=== PATIENT | male | born 1985 | race Caucasian/White ===

== ENCOUNTER 2017-02-02 01:08 | Emergency (ER) | payer BC, OTHER ==
[2017-02-02 01:28] VITALS: BP 122/76; PULSE 80; TEMP 98.3; BMI 27.4
--- NOTE | 2017-02-02 01:47 | PDOC ---
[id number] PAIN/YPD Time Seen by Provider: 02/02/17 01:31 - History of Present Illness Initial Comments: 02/02/17 01:47 CHIEF COMPLAINT: abscess to R side of face HISTORY OF PRESENT ILLNESS: 31 yo M with no PMH presents to ED with abscess to right side of face x 2 days. Patient states the abscess began hurting today and he feels like there is swelling in his ear. No recent travel or sick contacts. PAST MEDICAL HISTORY: Denies past medical history FAMILY HISTORY: Denies SOCIAL HISTORY: Denies tobacco, alcohol, illicit drug use. SURGICAL HISTORY: Denies ALLERGIES: No known drug allergies REVIEW OF SYSTEMS General/Constitutional: Denies fever or chills. Denies weakness, weight change. HEENT: Pain and abscess to R ear. Denies change in vision. Denies ear pain or discharge. Denies sore throat. Cardiovascular: Denies chest pain or shortness of breath. Respiratory: Denies cough, wheezing, or hemoptysis. Gastrointestinal: Denies nausea, vomiting, diarrhea or constipation. Denies rectal bleeding. Genitourinary: Denies dysuria, frequency, or change in urination. Musculoskeletal: Denies joint or muscle swelling or pain. Denies neck or back pain. Skin and breasts: Denies rash or easy bruising. PHYSICAL EXAM General Appearance: Well-appearing, appropriately dressed. No apparent distress , no intoxication. HEENT: 1cm x 1cm developing abscess anterior to R tragus. EOMI, PERRLA, normal ENT inspection, normal voice, TMs normal, pharynx normal. No conjunctival pallor. No photophobia, scleral icterus. Respiratory/Chest: Lungs CTAB. Cardiovascular: RRR. S1, S2. Integumentary: See HEENT. Other khan appropriate color, dry, warm. 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 Fully oriented, alert. Appropriate mood/affect. Motor strength 5/5. No appreciable EOM palsy, facial droop or sensory deficit. 02/02/17 02:16 Past History - Past Medical History Allergies/Adverse Reactions: Allergies Allergy/AdvReac Type Severity Reaction Status Date / Time No Known Allergies Allergy Verified 02/02/17 01:24 Home Medications: Ambulatory Orders Ibuprofen 600 mg PO TID PRN #21 tablet 03/23/17 Sulfamethoxazole/Trimethoprim [Bactrim Ds -] 1 tab PO BID #14 tablet 02/02/17 - Immunization History Immunization Up to Date: Yes - Psycho/Social/Smoking Cessation Hx Suicidal Ideation: No Smoking History: Never smoked Have you smoked in the past 12 months: No Information on smoking cessation initiated: No Hx Alcohol Use: No Drug/Substance Use Hx: No Substance Use Type: None *Physical Exam - Vital Signs Last Vital Signs Temp Pulse Resp BP Pulse Ox 98.3 F 80 20 122/76 99 02/02/17 01:24 02/02/17 01:24 02/02/17 01:24 02/02/17 01:24 02/02/17 01:24 Medical Decision Making - Medical Decision Making 02/02/17 01:48 31 yo M with no PMH presents to ED with abscess anterior to R tragus. Newly developing abscess is not ready to be drained at this time. Area circumscribed with marker; advised patient to return if abscess spreads past marked area. -Bactrim po BID, rx sent to pharm Advisd patient to take medication as prescribed and of signs and symptoms for return to ER. Patient verbalized understanding and agrees to plan. *DC/Admit/Observation/Transfer Diagnosis at time of Disposition: Abscess - Discharge Dispostion Disposition: HOME Condition at time of disposition: Stable Admit: No - Prescriptions Prescriptions: Sulfamethoxazole/Trimethoprim [Bactrim Ds -] 1 tab PO BID #14 tablet Ibuprofen 600 mg PO TID PRN #21 tablet PRN Reason: Pain - Patient Instructions Printed Discharge Instructions: DI for Skin Abscess Additional Instructions: As discussed, please take medications as prescribed. Please use warm compresses for 10-15 minutes at least 3-4 times a day. Please return to the ER if the abscess spread beyond the marked area, or if you develop fever, nausea, vomiting, or diarrhea, or any new or worsening symptoms.
== END 2017-02-02 02:07 | disposition home or self-care (01) ==
LOC: JER 01:08
DX: H60.01 Abscess of right external ear (principal)
CPT/HCPCS: 99281-25

== ENCOUNTER 2018-10-05 16:10 | Inpatient (IN) | payer BC, OTHER ==
--- NOTE | 2018-10-05 16:22 | PDOC ---
Rapid Medical Evaluation Medical Evaluation: Allergies Allergy/AdvReac Type Severity Reaction Status Date / Time No Known Allergies Allergy Verified 02/02/17 01:24 I have performed a brief in-person evaluation of this patient. The patient presents with a chief complaint of: 33 y/o M presents with swelling along R lower back x 3 days with fever yesterday. Has noted purulent drainage from site PE with warm, erythema, swelling and induration along R lower back Likely with abscess which will need I&D; consider wound culture The patient will proceed to the ED for further evaluation. 10/05/18 16:19
[2018-10-05 16:23] VITALS: BMI 28.3
[2018-10-05] MEDS ORDERED: IBUPROFEN 400 MG TABLET (FP) PO ONE (16:23)
[2018-10-05] MEDS ORDERED: SODIUM CHLORIDE IV ONE (17:38)
--- NOTE | 2018-10-05 17:42 | PDOC ---
Attending Attestation - Resident Resident Name: Erica Winters - ED Attending Attestation I have performed the following: I have examined & evaluated the patient, The case was reviewed & discussed with the resident, I agree w/resident's findings & plan, Exceptions are as noted - Medical Decision Making 10/05/18 17:42 I, Dr. Cindi Faust, DO, attest that this document has been prepared under my direction and personally reviewed by me in its entirety. I further attest, that it accurately reflects all work, treatment, procedures and medical decision -making performed by me. 10/05/18 18:28 a/p: 33yo male with R flank abscess -site where he carries his firearm was rubbing his back -bedside ultrasound does not show a collected abscess but instead shows cobblestoning and small areas of fluid collection, but not enough to I&D -will send cultures -will apply warm compresses -will give iv abx given fever and SIRS criteria -will admit for iv abx and poss I&D tomorrow -will start ivf hydration -will admit to [facility] 10/05/18 18:38 resident discussed the case with [facility] who accepts pt to service <Cindi Faust - Last Filed: 10/05/18 18:38> - HPI HPI: 10/05/18 20:42 The patient is a 33 year old male, with no significant past medical history, who presents to the emergency department with, 4 days of a abscess. As per patient, his abscess has been ongoing for 4 days with associated purulent discharge, erythema, and tenderness. Patient endorses a fever today, Tmax 101 degrees Fahrenheit, prompting his visit to the ER today. He denies any recent headache or dizziness. He denies any recent nausea, vomit, diarrhea or constipation. He denies any recent chest pain or shortness of breath. He denies any recent dysuria, frequency, urgency or hematuria. Allergies: NKDA Past surgical history: Orthopedic knee surgery. Social History: Nonsmoker. Denies EtOH use and recreational drug use. Primary Care Physician: Dr. Burnham - Physicial Exam PE: 10/05/18 20:43 Constitutional: Awake, alert, oriented. No acute distress. Head: Normocephalic. Atraumatic Eyes: PERRL. EOMI. Conjunctivae are not pale. ENT: Mucous membranes are moist and intact. Posterior pharynx without exudates or erythema. Uvula midline. Neck: Supple. Full ROM. No lymphadenopathy. +Cardiovascular: Tachycardic. S1, S2 regular. Distal pulses are 2+ and symmetric. Pulmonary/Chest: No evidence of respiratory distress. Clear to auscultation bilaterally No wheezing, rales or rhonchi. Abdominal: Soft and non-distended. There is no tenderness. No rebound, guarding or rigidity. No organomegaly. No palpable masses. Good bowel sounds. +Back: Right lower back 8cm abscess with surrounding cellulitis radiating to the abdomen associated warmth, tenderness. Musculoskeletal: No edema. No cyanosis. No clubbing. Full range of motion in all extremities. No calf tenderness. Radial/pedal pulses are intact and 2+ bilaterally Skin: Skin is warm and dry. No petechiae. No purpura. Neurological: Alert and oriented to person, place, and time. Cranial nerves II -XII are grossly intact. Normal speech. Strength is grossly symmetric. No sensory deficits. Psychiatric: Good eye contact. Normal interaction, affect and behavior. <Halle Piña - Last Filed: 10/05/18 20:44> Attestations - Attestations 10/05/18 20:44 Documentation prepared by Halle Piña, acting as hospital medical biller for Cindi Faust DO. <Halle Piña - Last Filed: 10/05/18 20:44>
--- NOTE | 2018-10-05 17:50 | PDOC ---
History of Present Illness - General Chief Complaint: Wound Stated Complaint: LUMP Time Seen by Provider: 10/05/18 17:12 History Source: Patient Exam Limitations: No Limitations - History of Present Illness Initial Comments: Pt is a 33 yo M, with no signifcant PMH, who is presenting with abscess with purulent drainage from his R flank for 4 days. Pt states it first "popped by itself" in the shower 4 days ago, when he reached around to see where the pain in his R side was coming from, which drained white exudate with blood mixed in. The pt states his mother also was able to release purulent drainage 2 days ago, and prepped the area with alcohol. The pt admits to subjective fevers and chills last night, and took 400 mg ibuprofen in the evening. The pt states he wears his gun in the L side of his pants, and thinks it may have rubbed against his back. Pt denies any headache, vision changes, chest pain, palpitations, SOB , nausea/vomiting, abdominal pain, urinary symptoms, diarrhea/constipation, or joint/leg swelling. Pt is up-to-date on tetanus vaccination (3 years ago). Pt denies any cigarette, alcohol, or drug use. Pt denies any recent travel or sick contacts. 10/05/18 18:42 Past History - Travel Traveled outside of the country in the last 30 days: No Close contact w/someone who was outside of country & ill: No - Past Medical History Allergies/Adverse Reactions: Allergies Allergy/AdvReac Type Severity Reaction Status Date / Time No Known Allergies Allergy Verified 10/05/18 16:19 Home Medications: Ambulatory Orders NK [No Known Home Medication] 10/05/18 - Immunization History Immunization Up to Date: Yes - Suicide/Smoking/Psychosocial Hx Smoking History: Never smoked Have you smoked in the past 12 months: No Hx Alcohol Use: No Drug/Substance Use Hx: No Substance Use Type: None Review of Systems - Review of Systems Able to Perform ROS?: Yes Is the patient limited Macedonian proficient: No Constitutional: Yes: Chills, Fever (subjective), Weight Stable. No: Diaphoresis , Loss of Appetite, Night Sweats, Weakness HEENTM: No: Blurred Vision, Double Vision, Throat Pain, Throat Swelling, Difficulty Swallowing Respiratory: No: Cough, Orthopnea, Shortness of Breath Cardiac (ROS): No: Chest Pain, Edema, Irregular Heart Rate, Lightheadedness, Palpitations, Syncope, Chest Tightness ABD/GI: No: Abdominal Distended, Constipated, Diarrhea, Nausea, Poor Appetite, Poor Fluid Intake, Vomiting, Abdominal cramping : No: Burning, Dysuria, Discharge, Frequency, Hematuria, Pain, Urgency Musculoskeletal: Yes: Back Pain (lower R back pain, superficial and only when touching his abscess site). No: Joint Pain, Joint Swelling, Muscle Pain, Muscle Weakness, Neck Pain, Joint Stiffness Integumentary: Yes: Change in Color, Erythema, Lesions (abscess lower back with surrounding warmth and redness). No: Rash Neurological: No: Headache, Seizure, Weakness, Unsteady Gait, Ataxia, Dizziness Psychiatric: No: Sleep Pattern Change, Change in Appetite Endocrine: No: Increased Urine, Change in Weight Hematologic/Lymphatic: No: Anemia, Blood Clots, Easy Bleeding, Easy Bruising All Other Systems: Reviewed and Negative *Physical Exam - Vital Signs Last Vital Signs Temp Pulse Resp BP Pulse Ox 100.1 F H 111 H 16 114/71 99 10/05/18 16:21 10/05/18 16:21 10/05/18 16:21 10/05/18 16:21 10/05/18 16:21 - Physical Exam General Appearance: Yes: Nourished, Appropriately Dressed. No: Apparent Distress (lying comfortably, low grade fever, tachycardic. NAD) HEENT: positive: EOMI, DESIRAE, Normal ENT Inspection, Normal Voice, Symmetrical, Pharynx Normal, Hearing Grossly Normal. negative: Scleral Icterus (R), Scleral Icterus (L), Pharyngeal Erythema, Tonsillar Exudate, Tonsillar Erythema, Rhinorrhea Neck: positive: Trachea midline, Normal Thyroid, Supple. negative: Tender, Rigid, Lymphadenopathy (R), Lymphadenopathy (L), Rigidity Respiratory/Chest: positive: Lungs Clear, Normal Breath Sounds. negative: Chest Tender, Respiratory Distress, Accessory Muscle Use, Crackles, Wheezing Cardiovascular: positive: Regular Rhythm, S1, S2, Tachycardia. negative: Regular Rate, Edema, JVD, Murmur Vascular Pulses: Carotid (R): 4+, Carotid (L): 4+ Gastrointestinal/Abdominal: positive: Normal Bowel Sounds, Flat, Soft. negative : Tender, Organomegaly, Pulsatile Mass, Distended, Guarding, Rebound Rectal Exam: positive: deferred Lymphatic: negative: Adenopathy, Tenderness Musculoskeletal: positive: Normal Inspection. negative: CVA Tenderness, Decreased Range of Motion Extremity: positive: Normal Capillary Refill, Normal Inspection, Normal Range of Motion, Pelvis Stable. negative: Tender, Pedal Edema, Swelling Integumentary: positive: Dry, Warm, Erythema, Other (large 8-9 cm firm abscess with puncture site, with surrounding warmth, and erythema extending around R flank and R groin. Area marked with pen. No drainage at this time.). negative: Normal Color Neurologic: positive: home health billing specialist II-XII NML intact, Fully Oriented, Alert, Normal Mood/ Affect, Normal Response, Motor Strength 03/17 ED Treatment Course - LABORATORY CBC & Chemistry Diagram: 10/05/18 17:55 10/05/18 17:55 - Medications Given in the ED: ED Medications Discontinued Medications Generic Name Dose Route Start Last Admin Trade Name Freq PRN Reason Stop Dose Admin Ibuprofen 800 mg 10/05/18 16:23 10/05/18 16:24 Motrin - PO 10/05/18 16:24 800 mg ONCE ONE Administration Medical Decision Making - Medical Decision Making Pt was seen at bedside, also will be seen by attending Dr. Faust. Pt presenting with abscess with purulent drainage from his R flank for 4 days. Pt states it first "popped by itself" in the shower 4 days ago, when he reached around to see where the pain in his R side was coming from, which drained white exudate with blood mixed in. The pt states his mother also was able to release purulent drainage 2 days ago, and prepped the area with alcohol. The pt admits to subjective fevers and chills last night, and took 400 mg ibuprofen in the evening. The pt states he wears his gun in the L side of his pants, and thinks it may have rubbed against his back. Pt denies any headache, vision changes, chest pain, palpitations, SOB, nausea/vomiting, abdominal pain, urinary symptoms , diarrhea/constipation, or joint/leg swelling. T 100.1, HR 111, RR 16, BP 114/71, saturating 99% on RA. PE showed puncture area on R lower back, with ~8-9 cm firm Considering local cellulitis with abscess vs sepsis and involvement of deeper tissue space. Ordered work-up including CBC, CMP, lactic acid, blood cultures, UA and urine culture. Provided 1 g ofirmev, 30 cc/kg IV NS and 15 mg/kg vancomycin for improvement of pain and antibiotic coverage. Will continue to reassess pt and monitor for symptomatic improvement. Bedside US showed very small fluid collection that was dispersed and not collected enough to drain yet. Will apply warm compresses to loosen the collection overnight. Provided pt with warm compresses. 10/05/18 18:02 Microblog paged to hospitalist for admission. CBC WNL. Pending CBC and pt to provide urine sample. 10/05/18 18:32 Spoke with hospitalist team, who has accepted the pt and will come down to see him. Area of cellulitis marked with pen for admitting team. 10/05/18 18:37 CBC WNL. Pt received 1L NS fluid bolus so far. Lactic acid 0.9 Pt resting comfortably, vitals stable. Pending bed on inpatient floor. 10/05/18 19:47 *DC/Admit/Observation/Transfer Diagnosis at time of Disposition: Abscess, Cellulitis of back [any part except buttock] - Discharge Dispostion Condition at time of disposition: Stable Decision to Admit order: Yes - Referrals - Patient Instructions - Post Discharge Activity
[2018-10-05] MEDS ORDERED: ACETAMINOPHEN 1000 MG/100 ML VIAL (NON FORMULARY) IVPB ONE (18:21)
[2018-10-05] MEDS ORDERED: VANCOMYCIN 1,250 MG in DEXTROSE 5%-WATER - 250 ML IVPB ONE (18:21)
[2018-10-05] MEDS ORDERED: ACETAMINOPHEN INJECTION 100 ML IVPB ONE (18:22)
[2018-10-05 18:27] LABS: ALBUMIN 3.6 g/dl (3.4-5.0); ALK PHOS 85 U/L (45-117); ANION GAP 4 MMOL/L (8-16); BILIRUBIN,TOTAL 0.4 mg/dL (0.2-1); BLOOD UREA NITROGEN 12 mg/dL (7-18); CALCIUM 8.6 mg/dL (8.5-10.1); CHLORIDE 105 mmol/L (98-107); CO2 30 mmol/L (21-32); CREATININE 0.9 mg/dL (0.55-1.3); GLUCOSE,RANDOM 101 mg/dL (74-106); POTASSIUM 4.2 mmol/L (3.5-5.1); SGOT/AST 19 U/L (15-37); SGPT/ALT 32 U/L (13-61); SODIUM 138 mmol/L (136-145); TOT PROT 7.3 g/dl (6.4-8.2)
[2018-10-05 18:44] LABS: BASO % 0.2 % (0-2.0); EOS % 0.7 % (0-4.5); HEMATOCRIT 37.4 % (35.4-49); HEMOGLOBIN 13.6 GM/dL (11.7-16.9); MCH 32.9 pg (25.7-33.7); MCHC 36.4 g/dl (32.0-35.9); MEAN CELL VOLUME 90.4 fl (80-96); MEAN PLT VOLUME 9.5 fl (7.5-11.1); MONO % 6.2 % (3.8-10.2); NEUT % 73.9 % (42.8-82.8); PLATELET COUNT 174 K/MM3 (134-434); RBC 4.14 M/mm3 (4.00-5.60); RDW 12.2 % (11.9-15.9); WHITE BLOOD COUNT 8.1 K/mm3 (4.0-10.0)
--- NOTE | 2018-10-05 21:04 | HP ---
CHIEF COMPLAINT: Purulent Drainage to R- Flank, Fever, Chills PCP: Dr. Randell Burnham HISTORY OF PRESENT ILLNESS: This is a 33 y/o young man with no significant past medical history. Who presents to the ED for an abscess with purulent drainage to the right flank, fever and chills x 4 days. The patient reports while taking a shower he felt a Pop and noted [id number] discharge from the abscess. Patient reports haivng his mother excise further and using alcohol prep pads to the skin. Patient reports that the area became more indurated, erythematous with streaking to his abdomen. Patient reports having a subjective fever 101.0 with chills, taking Ibuprofen 400mg. 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 Patient denies cough, MAGANA, dizziness , SOB, CP, N/V/D, dysuria. 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 Family History: Aunt- Ovarian Ca Cousins x2- Leukemia Allergies No Known Allergies Allergy (Verified 10/05/18 16:19) HOME MEDICATIONS: Home Medications Medication Instructions Recorded NK [No Known Home Medication] 10/05/18 REVIEW OF SYSTEMS CONSTITUTIONAL: fever, chills Absent: diaphoresis, generalized weakness, malaise, loss of appetite, weight change HEENT: Absent: rhinorrhea, nasal congestion, throat pain, throat swelling, difficulty swallowing, mouth swelling, ear pain, eye pain, visual changes CARDIOVASCULAR: Absent: chest pain, syncope, palpitations, irregular heart rate, lightheadedness , peripheral edema RESPIRATORY: Absent: cough, shortness of breath, dyspnea with exertion, orthopnea, wheezing, stridor, hemoptysis GASTROINTESTINAL: Absent: abdominal pain, abdominal distension, nausea, vomiting, diarrhea, constipation, melena, hematochezia GENITOURINARY: Absent: dysuria, frequency, urgency, hesitancy, hematuria, flank pain, genital pain MUSCULOSKELETAL: Absent: myalgia, arthralgia, joint swelling, back pain, neck pain SKIN: abscess to R-flank/torso with pus Absent: rash, itching, pallor HEMATOLOGIC/IMMUNOLOGIC: Absent: easy bleeding, easy bruising, lymphadenopathy, frequent infections ENDOCRINE: Absent: unexplained weight gain, unexplained weight loss, heat intolerance, cold intolerance NEUROLOGIC: Absent: headache, focal weakness or paresthesias, dizziness, unsteady gait, seizure, mental status changes, bladder or bowel incontinence PSYCHIATRIC: Absent: anxiety, depression, suicidal or homicidal ideation, hallucinations. PHYSICAL EXAMINATION Vital Signs - 24 hr 10/05/18 10/05/18 16:21 19:24 Temperature 100.1 F H 98 F Pulse Rate 111 H Pulse Rate [ 86 Apical] Respiratory 16 18 Rate Blood Pressure 114/71 Blood Pressure 127/69 [Left Arm] O2 Sat by Pulse 99 100 Oximetry (%) GENERAL: Awake, alert, and fully oriented, in no acute distress. HEAD: Normal with no signs of trauma. EYES: Pupils equal, round and reactive to light, extraocular movements intact, sclera anicteric, conjunctiva clear. No lid lag. EARS, NOSE, THROAT: Ears normal, nares patent, oropharynx clear without exudates. Moist mucous membranes. NECK: Normal range of motion, supple without lymphadenopathy, JVD, or masses. LUNGS: Breath sounds equal, clear to auscultation bilaterally. No wheezes, and no crackles. No accessory muscle use. HEART: Regular rate and rhythm, normal S1 and S2 without murmur, rub or gallop. ABDOMEN: Soft, nontender, not distended, normoactive bowel sounds, no guarding, no rebound, no masses. No hepatomegaly or splenomegaly. MUSCULOSKELETAL: Normal range of motion at all joints. No bony deformities or tenderness. No CVA tenderness. UPPER EXTREMITIES: 2+ pulses, warm, well-perfused. No cyanosis. No clubbing. No peripheral edema. LOWER EXTREMITIES: 2+ pulses, warm, well-perfused. No calf tenderness. No peripheral edema. NEUROLOGICAL: Cranial nerves II-XII intact. Normal speech. Normal gait. PSYCHIATRIC: Cooperative. Good eye contact. Appropriate mood and affect. SKIN: large 8-9 cm indurated abscess with puncture site non fluctuant, non purulent with surrounding warmth, and erythema extending around R flank and R groin. Warm, dry, normal turgor, no rashes. normal capillary refill. Laboratory Results - last 24 hr 11/10/05/18 10/05/18 17:55 17:55 17:55 WBC 8.1 RBC 4.14 Hgb 13.6 Hct 37.4 MCV 90.4 MCH 32.9 MCHC 36.4 H RDW 12.2 Plt Count 174 MPV 9.5 Absolute Neuts (auto) 6.0 Neutrophils % 73.9 Lymphocytes % 19.0 Monocytes % 6.2 Eosinophils % 0.7 Basophils % 0.2 Nucleated RBC % 0 Sodium 138 Potassium 4.2 Chloride 105 Carbon Dioxide 30 Anion Gap 4 L BUN 12 Creatinine 0.9 Creat Clearance w eGFR > 60 Random Glucose 101 Lactic Acid 0.9 Calcium 8.6 Total Bilirubin 0.4 AST 19 ALT 32 Alkaline Phosphatase 85 Total Protein 7.3 Albumin 3.6 ASSESSMENT/PLAN: 33 y/o man with no PMHx. Admitted for Cellulitis to R- Flank/Torso, Abscess for further evaluation of their emergent condition. Plan: FEN PO Fluids as tolerated Replete lytes Regular Diet DVT ppx OOB SCDs Dispo: Requires Inpatient Care Problem List - Problem (1) Cellulitis of back [any part except buttock] Assessment/Plan: Blood Cultures pending No leukocytosis, no neutrophilia T Max 100.1, P 111 Vancomycin given in ED, will continue Appreciate ID consult Monitor CBC, BMP Monitor vitals Warm soaks Tylenol prn Code(s): L03.312 - CELLULITIS OF BACK [ANY PART EXCEPT BUTTOCK] (2) Abscess Assessment/Plan: See above Code(s): L02.91 - CUTANEOUS ABSCESS, UNSPECIFIED Visit type - Emergency Visit Emergency Visit: Yes ED Registration Date: 10/05/18 Care time: The patient presented to the Emergency Department on the above date and was hospitalized for further evaluation of their emergent condition. - New Patient This patient is new to me today: Yes Date on this admission: 10/05/18 - Critical Care Critical Care patient: No
[2018-10-05] MEDS ORDERED: ACETAMINOPHEN 325 MG TABLET (FP) PO PRN (21:05)
[2018-10-06 00:20] LABS: URINE APPEARANCE CLEAR; URINE BILIRUBIN NEGATIVE (<2.0 mg/dL); URINE COLOR STRAW; URINE GLUCOSE (UA) NEGATIVE (NEGATIVE); URINE KETONE NEGATIVE (NEGATIVE); URINE LEUK ESTERASE NEGATIVE (NEGATIVE); URINE NITRITE NEGATIVE (NEGATIVE); URINE PROTEIN NEGATIVE (NEGATIVE); URINE UROBILINOGEN NEGATIVE mg/dL (0.2-1.0)
[2018-10-06 08:19] LABS: BASO % 0.3 % (0-2.0); HEMATOCRIT 38.9 % (35.4-49); HEMOGLOBIN 12.8 GM/dL (11.7-16.9); LYMPH % 26.3 % (8-40); MCH 30.5 pg (25.7-33.7); MEAN CELL VOLUME 92.5 fl (80-96); MEAN PLT VOLUME 9.4 fl (7.5-11.1); MONO % 8.3 % (3.8-10.2); NEUT % 63.1 % (42.8-82.8); PLATELET COUNT 147 K/MM3 (134-434); RDW 11.9 % (11.9-15.9); WHITE BLOOD COUNT 5.5 K/mm3 (4.0-10.0)
[2018-10-06 08:52] LABS: ANION GAP 7 MMOL/L (8-16); BLOOD UREA NITROGEN 13 mg/dL (7-18); CALCIUM 8.3 mg/dL (8.5-10.1); CHLORIDE 106 mmol/L (98-107); CO2 27 mmol/L (21-32); CREATININE 0.8 mg/dL (0.55-1.3); GLUCOSE,RANDOM 83 mg/dL (74-106); POTASSIUM 4.2 mmol/L (3.5-5.1); SODIUM 140 mmol/L (136-145)
[2018-10-06] MEDS ORDERED: VANCOMYCIN 1,250 MG in DEXTROSE 5%-WATER - 250 ML IVPB SCH (09:00)
--- NOTE | 2018-10-06 11:29 | PN ---
Progress Note (short form) - Note Progress Note: ID Consult dictated Soft tissue abscess R flank Fever R/O sepsis secondary to skin source BC obtained Surgical eval for I&D Empiric vancomycin/ unasyn
[2018-10-06] MEDS: AMPICILLIN NA/SULBACTAM NA 1.5 GM in SODIUM CHLORIDE 100 ML IVPB SCH ×3 (11:45→21:13)
[2018-10-06] MEDS ORDERED: AMPICILLIN NA/SULBACTAM NA 1.5 GM VIAL ONE ×2 (11:50→21:00)
[2018-10-06] MEDS ORDERED: SODIUM CHLORIDE 100 ML IVPB ONE ×2 (11:50→21:00)
--- NOTE | 2018-10-06 11:59 | CONS ---
DATE OF CONSULTATION: DATE OF DICTATION: 10/06/2018 REASON FOR CONSULTATION: Patient is a 33-year-old healthy male who was evaluated for a soft tissue abscess of the right flank. 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 He developed right flank pain and swelling over the past 3 to 4 days. He noted developing a soft tissue abscess, which he himself popped and expressed purulent fluid. The swelling recurred and he developed a fever to 101 on the day prior to admission. He presented to the emergency room where he was admitted. On exam, he was found to have a soft tissue abscess involving the right flank area. He was also noted to have a low-grade fever. Patient denies prior history of serious soft tissue infection requiring hospitalization, denies history of MRSA. PAST MEDICAL HISTORY: Negative. PAST SURGICAL HISTORY: He is status post left knee arthroscopy. HOME MEDICATIONS: None. ALLERGIES: No known allergies. SYSTEMS REVIEW: Neurologic: No loss of consciousness, seizure activity, or focal weakness. Cardiac: Negative chest pain or palpitations. Respiratory: Negative cough or sputum production. Gastrointestinal: Negative vomiting or diarrhea. Genitourinary: Negative for urinary tract infection. 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 LABORATORY DATA: White count 5.5, hematocrit 38.9, platelet count 147. BUN 13, creatinine 0.8. Blood and urine cultures are pending. Urine leukocyte esterase negative. PHYSICAL EXAMINATION: General: On physical examination he is awake and alert. He is not acutely toxic-appearing. Vitals: Temperature 97.5, T max 100.1, blood pressure 115/73, pulse 69 regular, respirations 18 per minute. HEENT: Sclera anicteric. Heart: Sounds S1, S2. Lungs: Clear. Abdomen: Soft and nontender. Examination of the right flank there is a large subcutaneous swelling approximately 5 x 7 cm elliptical in shape. It is indurated. There is a central pustule. It is tender to touch and erythematous. There is no expressible pus. Extremities: Negative for edema. IMPRESSION: 1. Soft tissue abscess, right flank. 2. Fever, rule out sepsis, secondary to skin source. Blood cultures have been obtained. Surgical evaluation for incision and drainage. Empiric antibiotic coverage with vancomycin and Unasyn. Warm compresses, analgesics. Will follow. Thank you for the kind referral. JADE SHAW M.D. TRISH/[id number]
[2018-10-06] MEDS: VANCOMYCIN 1,250 MG in DEXTROSE 5%-WATER - 250 ML IVPB SCH (13:30)
[2018-10-06] MEDS ORDERED: oxyCODONE HCL 5 MG TABLET PO ONE (13:43)
[2018-10-06] MEDS ORDERED: oxyCODONE HCL 5 MG TABLET PO PRN (14:34)
--- NOTE | 2018-10-06 14:35 | PN ---
Physical Exam: SUBJECTIVE: Patient seen and examined. Seen by ID, started on Unasyn and Vanco. Started having increased pain about an hour after IV abx started. Surgeon consult to have I&D tomorrow. OBJECTIVE: Vital Signs Period Temp Pulse Resp BP Sys/Matthews Pulse Ox Last 24 Hr 97.5 F-100.1 F 69-111 16-18 106-127/46-73 98-100 GENERAL: Awake, alert, and fully oriented, in no acute distress. HEAD: Normal with no signs of trauma. EYES: Pupils equal, round and reactive to light, extraocular movements intact, sclera anicteric, conjunctiva clear. No lid lag. EARS, NOSE, THROAT: Nares patent, oropharynx clear without exudates. Moist mucous membranes. NECK: Normal range of motion, supple without lymphadenopathy, JVD, or masses. LUNGS: Breath sounds equal, clear to auscultation bilaterally. No wheezes, and no crackles. No accessory muscle use. HEART: Regular rate and rhythm, normal S1 and S2 without murmur, rub or gallop. ABDOMEN: Soft, nontender, not distended, normoactive bowel sounds, no guarding, no rebound, no masses. No hepatomegaly or splenomegaly. MUSCULOSKELETAL: Normal range of motion at all joints. No bony deformities or tenderness. No CVA tenderness. UPPER EXTREMITIES: 2+ pulses, warm, well-perfused. No cyanosis. No clubbing. No peripheral edema. LOWER EXTREMITIES: 2+ pulses, warm, well-perfused. No calf tenderness. No peripheral edema. NEUROLOGICAL: No facial droop, tongue midline, normal speech. Normal gait. PSYCHIATRIC: Cooperative. Good eye contact. Appropriate mood and affect. SKIN: large 8-9 cm indurated abscess with puncture site non fluctuant, 1x3 cm purulent center with surrounding warmth, and erythema extending around R flank and R groin. Warm, dry, normal turgor, no rashes. normal capillary refill. Laboratory Results - last 24 hr 10/05/18 10/05/18 10/05/18 17:55 17:55 17:55 WBC 8.1 RBC 4.14 Hgb 13.6 Hct 37.4 MCV 90.4 MCH 32.9 MCHC 36.4 H RDW 12.2 Plt Count 174 MPV 9.5 Absolute Neuts (auto) 6.0 Neutrophils % 73.9 Lymphocytes % 19.0 Monocytes % 6.2 Eosinophils % 0.7 Basophils % 0.2 Nucleated RBC % 0 Sodium 138 Potassium 4.2 Chloride 105 Carbon Dioxide 30 Anion Gap 4 L BUN 12 Creatinine 0.9 Creat Clearance w eGFR > 60 Random Glucose 101 Lactic Acid 0.9 Calcium 8.6 Total Bilirubin 0.4 AST 19 ALT 32 Alkaline Phosphatase 85 Total Protein 7.3 Albumin 3.6 Urine Color Urine Appearance Urine pH Ur Specific [place] Urine Protein Urine Glucose (UA) Urine Ketones Urine Blood Urine Nitrite Urine Bilirubin Urine Urobilinogen Ur Leukocyte Esterase 10/05/18 10/06/18 10/06/18 23:40 06:15 06:15 WBC 5.5 RBC 4.20 Hgb 12.8 Hct 38.9 MCV 92.5 MCH 30.5 MCHC 33.0 RDW 11.9 Plt Count 147 MPV 9.4 Absolute Neuts (auto) 3.5 Neutrophils % 63.1 Lymphocytes % 26.3 D Monocytes % 8.3 Eosinophils % 2.0 D Basophils % 0.3 Nucleated RBC % 0 Sodium 140 Potassium 4.2 Chloride 106 Carbon Dioxide 27 Anion Gap 7 L BUN 13 Creatinine 0.8 Creat Clearance w eGFR > 60 Random Glucose 83 Lactic Acid Calcium 8.3 L Total Bilirubin AST ALT Alkaline Phosphatase Total Protein Albumin Urine Color Straw Urine Appearance Clear Urine pH 6.0 Ur Specific [place] 1.011 Urine Protein Negative Urine Glucose (UA) Negative Urine Ketones Negative Urine Blood Negative Urine Nitrite Negative Urine Bilirubin Negative Urine Urobilinogen Negative Ur Leukocyte Esterase Negative Active Medications Generic Name Dose Route Start Last Admin Trade Name Freq PRN Reason Stop Dose Admin Acetaminophen 650 mg 10/05/18 21:05 Tylenol - PO Q6H PRN FEVER Vancomycin HCl 1,250 mg/ 250 mls @ 166.667 mls/hr 10/06/18 12:00 10/06/18 13: 30 Dextrose IVPB 166.667 mls/hr BID@0000,1200 EMILY Administration Protocol Ampicillin Sodium/Sulbactam 100 mls @ 200 mls/hr 10/06/18 11:30 10/06/18 11: 45 Sodium 1.5 gm/ Sodium Chloride IVPB 200 mls/hr Q6H-IV EMILY Administration ASSESSMENT/PLAN: 33 year old male presented to the ED with a large 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 He was admitted for cellulitis I&D and IV antibiotic treatment. Cellulitis - Now afebrile (low grade temp in ED) - No leukocytosis - ED unable to do I&D - Seen by ID specialist Dr. Radford - Started on IV Vancomycin and Unasyn - Surgeon Dr. Shine consulted for I&D, he will do tomorrow - NPO after midnight - APAP or Oxycodone 5 mg PO q6 hrs PRN for pain control - Keep area covered with DPD Propylaxis DVT: SCDs, OOB FEN - PO intake adequate - Replete lytes as needed - Regular Diet Dispo: Requires Inpatient Care Visit type - Emergency Visit Emergency Visit: No - New Patient This patient is new to me today: Yes Date on this admission: 10/06/18 - Critical Care Critical Care patient: No
[2018-10-07] MEDS: VANCOMYCIN 1,250 MG in DEXTROSE 5%-WATER - 250 ML IVPB SCH ×2 (00:10→12:47)
[2018-10-07] MEDS ORDERED: AMPICILLIN NA/SULBACTAM NA 1.5 GM VIAL ONE ×4 (02:42→20:08)
[2018-10-07] MEDS ORDERED: SODIUM CHLORIDE 100 ML IVPB ONE ×4 (02:43→20:08)
[2018-10-07] MEDS: AMPICILLIN NA/SULBACTAM NA 1.5 GM in SODIUM CHLORIDE 100 ML IVPB SCH ×4 (02:49→20:14)
[2018-10-07] MEDS ORDERED: fentaNYL CITRATE 250 MCG/5 ML VIAL ONE (08:27)
[2018-10-07] MEDS ORDERED: PROPOFOL 20 ML ONE ×2 (08:27)
[2018-10-07] MEDS ORDERED: SUCCINYLCHOLINE CHLORIDE 200 MG/10 ML VIAL ONE (09:14)
[2018-10-07] MEDS ORDERED: ONDANSETRON 4 MG/2 ML VIAL IVPUSH PRN ×2 (09:19→09:36)
[2018-10-07] MEDS ORDERED: PROMETHAZINE HCL 25 MG/1 ML VIAL IVPUSH PRN ×2 (09:19→09:36)
[2018-10-07] MEDS ORDERED: oxyCODONE HCL 5 MG TABLET PO PRN ×3 (09:19→09:36)
[2018-10-07] MEDS ORDERED: LACTATED RINGERS SOLUTION 1,000 ML IV SCH (09:30)
--- NOTE | 2018-10-07 09:33 | OP ---
Operative Note - Note: Operative Date: 10/07/18 Pre-Operative Diagnosis: abscess right flank Operation: i and D right flank abscess Findings: right flank abscess Post-Operative Diagnosis: Same as Pre-op Surgeon: Chiki Shine Anesthesiologist/LAW EXAMINER: Jerrod Roe Anesthesia: General Estimated Blood Loss (mls): 10 Drains & Tubes with Location: iodoform packing
[2018-10-07] MEDS ORDERED: ACETAMINOPHEN 325 MG TABLET (FP) PO PRN (09:36)
[2018-10-07] MEDS: LACTATED RINGERS SOLUTION 1,000 ML IV SCH (10:24)
--- NOTE | 2018-10-07 10:35 | PN ---
Physical Exam: SUBJECTIVE: Patient seen and examined OBJECTIVE: Vital Signs Period Temp Pulse Resp BP Sys/Matthews Pulse Ox Last 24 Hr 97.6 F-99 F 64-96 16-20 106-130/59-76 99-100 GENERAL: Awake, alert, and fully oriented, in no acute distress. HEAD: Normal with no signs of trauma. EYES: Pupils equal, round and reactive to light, extraocular movements intact, sclera anicteric, conjunctiva clear. No lid lag. EARS, NOSE, THROAT: Nares patent, oropharynx clear without exudates. Moist mucous membranes. NECK: Normal range of motion, supple without lymphadenopathy, JVD, or masses. LUNGS: Breath sounds equal, clear to auscultation bilaterally. No wheezes, and no crackles. No accessory muscle use. HEART: Regular rate and rhythm, normal S1 and S2 without murmur, rub or gallop. ABDOMEN: Soft, nontender, not distended, normoactive bowel sounds, no guarding, no rebound, no masses. No hepatomegaly or splenomegaly. MUSCULOSKELETAL: Normal range of motion at all joints. No bony deformities or tenderness. No CVA tenderness. UPPER EXTREMITIES: 2+ pulses, warm, well-perfused. No cyanosis. No clubbing. No peripheral edema. LOWER EXTREMITIES: 2+ pulses, warm, well-perfused. No calf tenderness. No peripheral edema. NEUROLOGICAL: No facial droop, tongue midline, normal speech. Normal gait. PSYCHIATRIC: Cooperative. Good eye contact. Appropriate mood and affect. SKIN: Dressing to right flanck c/d/i Active Medications Generic Name Dose Route Start Last Admin Trade Name Freq PRN Reason Stop Dose Admin Acetaminophen 650 mg 10/07/18 09:36 10/07/18 10:22 Tylenol - PO 650 mg Q6H PRN Administration FEVER Ampicillin Sodium/Sulbactam 100 mls @ 200 mls/hr 10/07/18 15:00 Sodium 1.5 gm/ Sodium Chloride IVPB Q6H-IV EMILY Lactated Ringer's 1,000 mls @ 75 mls/hr 10/07/18 09:36 10/07/18 10:24 Lactated Ringers Solution IV Not Given ASDIR EMILY Vancomycin HCl 1,250 mg/ 250 mls @ 166.667 mls/hr 10/07/18 12:00 Dextrose IVPB BID@0000,1200 [facility] Protocol Ondansetron HCl 4 mg 10/07/18 09:36 Zofran Injection IVPUSH Q6H PRN NAUSEA AND/OR VOMITING Oxycodone HCl 5 mg 10/07/18 09:36 Roxicodone - PO Q6H PRN PAIN LEVEL 6-10 Oxycodone HCl 10 mg 10/07/18 09:36 10/07/18 10:25 Roxicodone - PO 10/08/18 09:18 10 mg Q4H PRN Administration PAIN LEVEL 6-10 ASSESSMENT/PLAN: 33 year old male presented to the ED with a 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 He was admitted for cellulitis I&D and IV antibiotic treatment. Cellulitis - Now afebrile (low grade temp in ED) - No leukocytosis - ED unable to do I&D - Seen by ID specialist Dr. Radford - Continue IV Vancomycin and Unasyn - Surgeon Dr. Shine performed I&D - Wound culture sent - APAP or Oxycodone 5 mg and 10 mg PO q6 hrs PRN for pain control - CBC for tomorrow - Keep area covered with DPD Propylaxis DVT: SCDs, OOB FEN - PO intake adequate - Replete lytes as needed - Regular Diet Dispo: May be appropriate for d/c tomorrow after surgeon Dr. Shine looks at the wound. Visit type - Emergency Visit Emergency Visit: No - New Patient This patient is new to me today: No - Critical Care Critical Care patient: No
[2018-10-07] MEDS ORDERED: AMPICILLIN NA/SULBACTAM NA 1.5 GM in SODIUM CHLORIDE 100 ML IVPB ONE (10:37)
[2018-10-08] MEDS: VANCOMYCIN 1,250 MG in DEXTROSE 5%-WATER - 250 ML IVPB SCH ×2 (00:09→11:56)
[2018-10-08] MEDS ORDERED: SODIUM CHLORIDE 100 ML IVPB ONE ×2 (02:18→09:12)
[2018-10-08] MEDS ORDERED: AMPICILLIN NA/SULBACTAM NA 1.5 GM VIAL ONE ×2 (02:18→09:12)
[2018-10-08] MEDS: AMPICILLIN NA/SULBACTAM NA 1.5 GM in SODIUM CHLORIDE 100 ML IVPB SCH ×3 (03:03→16:26)
[2018-10-08 07:20] LABS: HEMATOCRIT 38.6 % (35.4-49); HEMOGLOBIN 13.7 GM/dL (11.7-16.9); MCH 32.1 pg (25.7-33.7); MCHC 35.4 g/dl (32.0-35.9); MEAN CELL VOLUME 90.8 fl (80-96); MEAN PLT VOLUME 9.8 fl (7.5-11.1); PLATELET COUNT 183 K/MM3 (134-434); RBC 4.25 M/mm3 (4.00-5.60); RDW 12.2 % (11.9-15.9); WHITE BLOOD COUNT 4.3 K/mm3 (4.0-10.0)
--- NOTE | 2018-10-08 07:53 | PN ---
Progress Note (short form) - Note Progress Note: POD #1 Alert. Supine in bed. C/o mild incisional tenderness. Adequate pain control via PRN meds. He's oob and ambulating unassisted. Voiding. Stooling. Tolerating PO diet. Denies n/v/f/c. Last Vital Signs Temp Pulse Resp BP Pulse Ox 98.2 F 64 20 105/50 L 99 10/08/ 06:00 10/08/18 06:00 10/08/18 06:00 10/08/18 06:00 10/07/18 21:00 Gen: nad Right flank: Packing removed on rounds. Wound open. Minimal fibrinous exudate to base inferior. No undermining. No soft tissue erythema. Minimal serous drainage. No foul odor. Problem List - Problems (1) Abscess of flank Assessment/Plan: POD #1 s/p I & D right flank abscess. Dressing changed on rounds. May use shower. Pain management Cleared for dc home today w/ f/u in Dr. Shine's office in 7-[address] of [address] Shine, thank you for the opportunity to participate in your patient's care Code(s): L02.211 - CUTANEOUS ABSCESS OF ABDOMINAL WALL
[2018-10-08 08:14] LABS: ANION GAP 4 MMOL/L (8-16); BLOOD UREA NITROGEN 10 mg/dL (7-18); CALCIUM 9.3 mg/dL (8.5-10.1); CHLORIDE 102 mmol/L (98-107); CO2 32 mmol/L (21-32); CREATININE 0.9 mg/dL (0.55-1.3); GLUCOSE,RANDOM 92 mg/dL (74-106); POTASSIUM 4.5 mmol/L (3.5-5.1); SODIUM 138 mmol/L (136-145)
[2018-10-08] MEDS: LACTATED RINGERS SOLUTION 1,000 ML IV SCH (11:59)
--- NOTE | 2018-10-08 12:30 | PN ---
Progress Note, Physician History of Present Illness: S/P I&D R flank soft tissue abscess No c/o pain Wound c/s presumptive MSSA - Current Medication List Current Medications: Active Medications Acetaminophen (Tylenol -) 650 mg PO Q6H PRN PRN Reason: FEVER Last Admin: 10/07/18 10:22 Dose: 650 mg Ampicillin Sodium/Sulbactam (Sodium 1.5 gm/ Sodium Chloride) 100 mls @ 200 mls/ hr IVPB Q6H-IV EMILY Last Admin: 10/08/18 09:45 Dose: 200 mls/hr Vancomycin HCl 1,250 mg/ (Dextrose) 250 mls @ 166.667 mls/hr IVPB BID@0000, 1200 EMILY; Protocol Last Admin: 10/08/18 11:56 Dose: 166.667 mls/hr Ondansetron HCl (Zofran Injection) 4 mg IVPUSH Q6H PRN PRN Reason: NAUSEA AND/OR VOMITING Oxycodone HCl (Roxicodone -) 5 mg PO Q6H PRN PRN Reason: PAIN LEVEL 6-10 Last Admin: 10/08/18 00:12 Dose: 5 mg - Objective Vital Signs: Vital Signs Temperature 98.2 F 10/08/18 06:00 Pulse Rate 64 10/08/18 06:00 Respiratory Rate 20 10/08/18 06:00 Blood Pressure 105/50 L 10/08/18 06:00 O2 Sat by Pulse Oximetry (%) 99 10/07/18 21:00 Constitutional: Yes: No Distress Cardiovascular: Yes: Regular Rate and Rhythm, S1, S2 Respiratory: Yes: CTA Bilaterally Gastrointestinal: Yes: Normal Bowel Sounds, Soft. No: Tenderness Integumentary: Yes: Other (R flank incisional wound with packing in place) Labs: CBC, BMP 10/08/18 06:45 10/08/18 06:45 Assessment/Plan S/P I&D R flank incisional abscess Presumed MSSA Substitute Keflex 500mg po q6h x 7 d Local wound care
--- NOTE | 2018-10-08 13:04 | PN ---
Progress Note (short form) - Note Progress Note: ANESTHESIOLOGY POST-OP CHECK 33M s/p right flank I&D under general anesthesia POD #1. no acute complaints. Pain 1/10 and tolerable. Denies N/V, toleraing PO diet. Vital Signs Temperature 98.2 F 10/08/18 06:00 Pulse Rate 64 10/08/18 06:00 Respiratory Rate 20 10/08/18 06:00 Blood Pressure 105/50 L 10/08/18 06:00 O2 Sat by Pulse Oximetry (%) 99 10/07/18 21:00 Active Medications Acetaminophen (Tylenol -) 650 mg PO Q6H PRN PRN Reason: FEVER Last Admin: 10/07/18 10:22 Dose: 650 mg Ampicillin Sodium/Sulbactam (Sodium 1.5 gm/ Sodium Chloride) 100 mls @ 200 mls/ hr IVPB Q6H-IV EMILY Last Admin: 10/08/18 09:45 Dose: 200 mls/hr Vancomycin HCl 1,250 mg/ (Dextrose) 250 mls @ 166.667 mls/hr IVPB BID@0000, 1200 EMILY; Protocol Last Admin: 10/08/18 11:56 Dose: 166.667 mls/hr Ondansetron HCl (Zofran Injection) 4 mg IVPUSH Q6H PRN PRN Reason: NAUSEA AND/OR VOMITING Oxycodone HCl (Roxicodone -) 5 mg PO Q6H PRN PRN Reason: PAIN LEVEL 6-10 Last Admin: 10/08/18 00:12 Dose: 5 mg Gen: Awake, alert No apparent anesthesia complications. Pain controlled, continue management as per primary team.
--- NOTE | 2018-10-08 13:29 | OP ---
DATE OF OPERATION: 10/07/2018 PREOPERATIVE DIAGNOSIS: Abscess right flank. POSTOPERATIVE DIAGNOSIS: Abscess right flank. PROCEDURE: Incision and drainage right flank abscess. SURGEON: Chiki Shine MD ANESTHESIA: General. OPERATIVE FINDINGS: A skin soft tissue abscess of the right flank with surrounding erythema and induration. The rest of the findings were unremarkable. DESCRIPTION OF PROCEDURE: The patient was placed on the operating room table in the supine position, and after the induction of general anesthesia, he was turned to the left lateral decubitus position. The area over the abscess was prepped with Betadine and draped in sterile fashion. A time-out was taken, and a cruciate skin incision was made. Purulent drainage was sent for culture and sensitivity. All loculations were digitally broken up and then the wound copiously irrigated with a combination of saline and peroxide. Hemostasis was secured with electrocautery, and the wound was further irrigated with saline. Hemostasis was verified, and the wound was packed with 1-inch iodoform gauze followed by dry sterile dressings and the procedure terminated at this point, and the patient extubated and transferred to the post anesthesia care unit in stable condition awake and alert. ESTIMATED BLOOD LOSS: 10 mL. REPLACEMENTS: Crystalloid. DRAINS: Iodoform packing. SPECIMEN: Culture and sensitivity of purulent drainage to Microbiology. I, Chiki Shine, was physically present in the operating room from the time the patient was placed on the operating room table until he was transferred to the post anesthesia care unit in [facility]. MD ANGELIQUE Manjarrez/[id number]
[2018-10-08 14:23] VITALS: BP 118/63; PULSE 74; TEMP 98.6
--- NOTE | 2018-10-08 15:20 | DS ---
"Physical Examination Vital Signs: Vital Signs Temperature 98.6 F 10/08/18 14:19 Pulse Rate 74 10/08/18 14:19 Respiratory Rate 17 10/08/18 14:19 Blood Pressure 118/63 10/08/18 14:19 O2 Sat by Pulse Oximetry (%) 99 10/08/18 09:00 Findings/Remarks: 33 year old M with right flank abscess s/p incision and drainage under general anesthesia followed by two days of vanco and zosyn. Wound has been cleansed and packed daily. He is deemed stable for discharge home and agrees with plan of care to completed 7days of PO keflex, cleanse wound daily and cover with dry sterile dressing. Constitutional: Yes: Well Nourished, No Distress, Calm Eyes: Yes: Conjunctiva Clear, EOM Intact HENT: Yes: Atraumatic, Normocephalic Neck: Yes: Supple, Trachea Midline Cardiovascular: Yes: Regular Rate and Rhythm Respiratory: Yes: Regular, CTA Bilaterally Gastrointestinal: Yes: Normal Bowel Sounds, Soft ...Rectal Exam: Yes: Deferred Musculoskeletal: Yes: WNL Extremities: Yes: WNL Edema: No Peripheral Pulses WNL: Yes Peripheral Pulses: Left Radial: 2+, Right Radial: 2+, Left Doralis Pedis: 2+, Right Dorsalis Pedis: 2+ Integumentary: Yes: Incision (right flank wound with packing and covered with dry sterile dressing. mild serosangineous drainage.) Neurological: Yes: Alert, Oriented ...Motor Strength: WNL Psychiatric: Yes: Alert, Oriented Labs: CBC, BMP 10/08/18 06:45 10/08/18 06:45 Discharge Summary Reason For Visit: CELLULITIS; ABSCESS Current Active Problems Abscess (Acute) Abscess of flank (Acute) Cellulitis of back [any part except buttock] (Acute) Procedures: Principal: abscess s/p I&D Hospital Course: - ED unable to do I&D, therefore pt was admitted and Seen by ID specialist Dr. Radford. He was Started on IV Vancomycin and Unasyn with general Surgeon Dr. Shine performing I&D on right flank abscess on 10/07. Condition: Good - Instructions Diet, Activity, Other Instructions: Dr. Shine Discharge Instructions Post Operative Instructions Physical activity Resume your normal everyday activity as tolerated no heavy lifting or exercise until seen by your surgeon. You may walk unlimited amounts of and climb stairs. You may resume driving the car when you feel safe and comfortable behind the wheel. Wound care You may shower...encouraged to allow soapy water to run through your wound. Re- pack your open wound with some 4x4 (pack a little less each day). Your wound will heal from the bottom to the top. May change the dressing as needed depending on the amount of drainage (to be expected). Diet There are no dietary restrictions. Eat healthy, high-fiber foods. Drink 6 to 8 glasses of liquid each day. This will assist in keeping your bowels are regular. Pain management You may take Tylenol or acetaminophen or Ibuprofen (for example, Motrin, Advil etc.) Any pain prescription medication ordered should be taken as prescribed for moderate to severe pain. Call Dr. Shine for any of the following: Severe pain not relieved by medication Fever of 101 or higher Excessive bleeding or drainage on dressing Inability to urinate Call the office at [phone] for a post operative appointment in 7 - 10 days. [facility] SPECIALIST checked prior to escribe of narcotics for pain management This report was requested by: Miles Pavon | Reference #: [id number] Referrals: Randell Burnham MD [Primary Care Provider] - Disposition: HOME - Home Medications Comprehensive Discharge Medication List: Ambulatory Orders Acetaminophen [Tylenol .Regular Strength -] 650 mg PO Q6H PRN tablet 10/08/18 Cephalexin Monohydrate [Keflex -] 500 mg PO Q6HPO 7 Days #28 capsule MDD 4 tabs 10/08/18 Local wound care May shower at home Cleared for ia home today f/u in Dr. Shine's office in 7-10 days This patient is new to me today: Yes Date on this admission: 10/06/18 Emergency Visit: Yes ED Registration Date: 10/05/18 Care time: The patient presented to the Emergency Department on the above date and was hospitalized for further evaluation of their emergent condition. Critical Care patient: No - Discharge Referral Referred to [facility] No"
[2018-10-08] MEDS ORDERED: CEPHALEXIN MONOHYDRATE 500 MG CAPSULE (UD) PO SCH (18:00)
== END 2018-10-08 15:40 | disposition home or self-care (01) | DRG 603 ==
LOC: JERFT 16:10 → JER 16:10 → JERBED 18:27 → J8W 20:23
PROVIDERS: ADMIT Internal Medicine; ATTEND Nurse Practitioner Family
PROC: 0H97XZZ Drainage of Abdomen Skin, External Approach (ICD-10-PCS; principal; 2018-10-07 08:00)
DX: L02.211 Cutaneous abscess of abdominal wall (principal)
CPT/HCPCS: 36415; 80048; 80053; 81003; 83605; 85025; 85027; 87040; 87070; 87086; 87186; 87205; 94760; 99284-25; J0131; J7030

== ENCOUNTER 2021-08-28 20:36 | Emergency (ER) | payer BC ==
[2021-08-28 20:49] VITALS: BP 125/74; PULSE 87; TEMP 98.4; BMI 26.6
[2021-08-28] MEDS ORDERED: valACYclovir HCL 1000 MG TABLET PO ONE (23:06)
[2021-08-28] MEDS ORDERED: valACYclovir HCL 500 MG TABLET (FP) ONE ×2 (23:18→23:21)
== END 2021-08-28 23:20 | disposition home or self-care (01) ==
LOC: JERFT 20:36
DX: S30.822A Blister (nonthermal) of penis, initial encounter (principal)
CPT/HCPCS: 36415; 87255; 99283-25